=== PATIENT | male | born 1955 | race Caucasian/White ===

== ENCOUNTER 2023-05-24 09:55 | Emergency (ER) | payer OTHER, SELFPAY ==
[2023-05-24] VITALS (8 sets, daily range): BP systolic 121–158; BP diastolic 76–90; PULSE 67–68; BMI 27.6
--- NOTE | 2023-05-24 10:39 | EDRN ---
Derek LEE currently at the pts bedside
[2023-05-24 10:42] LABS: % Basophils 0.9 % (0-2); % Eosinophils 0.7 % (0-6); % Immature Granulocytes 0.5 % (0-0.5); % Lymphocytes 19.2 % (20.5-51.1); % Monocytes 7.8 % (1.7-9.3); % Neutrophils 70.9 % (42.2-75.2); Absolute Basophils 0.1 10^3/uL (0-0.2); Absolute Eosinophils 0.1 10^3/uL (0-0.7); Absolute Lymphocytes 1.7 10^3/uL (1.2-3.4); Absolute Monocytes 0.7 10^3/uL (0.1-0.6); Absolute Neutrophils 6.3 10^3/uL (1.4-6.5); Hematocrit 47.1 % (39.0-52.0); Hemoglobin 15.8 g/dL (13.0-18.0); Mean Corp Hgb Conc. 33.5 g/dL (33.0-37.0); Mean Corpuscular Hgb 29.6 pg (27.0-31.0); Mean Corpuscular Volume 88.4 fL (80.0-94.0); Mean Platelet Volume 11.2 fL (7.4-10.4); Nucleated Red Blood Cells % 0 % (-); Platelet Count 209 10^3/uL (130-400); Red Blood Cell Count 5.33 10^6/uL (4.70-6.10); Red Cell Dist. Width 12.7 % (11.5-14.5); White Blood Cell Count 8.9 10^3/uL (4.8-10.8)
[2023-05-24] MEDS: NSS 1000 IV (10:47)
[2023-05-24] MEDS: ANTIVERT 25 MG PO (10:47)
--- NOTE | 2023-05-24 10:49 | ED.GENMED ---
History of Present Illness
General
Chief Complaint: Dizziness
Source: patient
Time Seen by Provider: 05/24/23 10:34
Travel History
Have you had any contact with someone who has COVID-19?: No
Do you have any symptoms of coronavirus? Fever > 100 degrees, chills, cough, shortness of breath, sore throat, loss of taste or smell, muscle aches, or headache?: No
History of Present Illness
History of Present Illness:
67-year-old male with no significant past medical history presenting the emergency department for evaluation of vertigo that began upon awakening around 8 AM and has been persistent since although improved. Patient does note a history of vertigo
but states today seem to be lasting a little bit longer than his previous. He notes that he 'has had in her ear crystals' which were the cause of his previous vertigo attacks patient denies any other associated symptoms outside of nausea but is
otherwise denying any headaches, visual disturbances, focal weakness or numbness, chest pain, shortness of breath, palpitations, diaphoresis or any other symptoms. Patient denies any recent illnesses or otalgia. Did not attempt any medications for
relief prior to arrival.
Past History
Past History
ED Past Medical History: None
ED Past Surgical History: Other
Social History
Tobacco: Non-smoker
Alcohol: Occasional
Drug: None
Personal:
Living: with family
Review of Systems
Review of Systems
All Other Systems: ROS reviewed and negative except as documented in HPI and ROS
Phy Exam
Physical Exam
Physical Exam:
GENERAL: Alert , in no apparent distress
EYE: pupils equal and reactive, 3 mm bilateral, EOMI, no nystagmus
NECK: Supple
ENT: o/p clr, mmm.
CARDIAC: Regular rate and rhythm, no murmur.
LUNGS: Clear breath sounds bilaterally, no acute respiratory distress, no wheezes/rales/rhonchi
ABDOMEN: Soft, without focal tenderness, no r/g, no cvat
NEUROLOGICAL: Alert and oriented, no focal neuro deficits, moves all extremities, no dysmetria or dysarthria, sensation grossly intact to light touch throughout bilateral upper and lower extremities, moves all extremities without difficult
SKIN: Warm and dry, skin intact.
MUSCULOSKELETAL: No edema, well perfused.
PSYCH: Normal and appropriate interaction.
Scores
Heart Failure Risk
Heart Failure Risk Score: Not Applicable
Heart Score for Chest Pain Patients
STEMI patient?: Not applicable
Withdrawal Assessment of Alcohol
Withdrawal Assessment Completed?: Not applicable
Course
Orders/Labs/Results
Orders:
Orders
05/24/23 10:17
EKG [Electrocardiogram (*1)] Urgent
Reason for Study: Vertigo / Dizzy
05/24/23 10:18
EKG- Treatment ONCE
05/24/23 10:29
Complete Blood Count/With Diff Urgent
Comprehensive Metabolic Panel Urgent
05/24/23 10:40
0.9% Sodium Chloride 1000 ml [Nss] 1,000 ml IV BOLUS
05/24/23 10:45
CT Head W/o Iv Contrast Urgent
Comment:
Reason For Exam: vertigo
Meclizine [Antivert] 25 mg PO NOW STA
05/24/23 10:46
Meclizine [Antivert] 25 mg .ROUTE .ST-MED ONE
05/24/23 11:36
Physical Therapy Consult [Pt Eval And Treat] Urgent
Treatment: vestibular therapy
Activity Level: Ambulate
05/24/23 12:13
Ondansetron Injectable [Zofran] 4 mg IV NOW STA
Abnormal Lab Results
05/24/23
10:29
MPV 11.2 H fL
(7.4-10.4)
Absolute Monos (auto) 0.7 H 10^3/uL
(0.1-0.6)
Lymphocytes % 19.2 L %
(20.5-51.1)
Glucose 137 H mg/dl
(70-99)
05/24/23 10:29
05/24/23 10:29
Vital Signs
Initial and Last Documented VS:
Initial Vital Signs
Temp Pulse Resp BP Pulse Ox
97.5 F 59 18 158/90 100
05/24/23 09:58 05/24/23 09:58 05/24/23 09:58 05/24/23 09:58 05/24/23 09:58
Last Documented Vital Signs
Temp Pulse Resp BP Pulse Ox
97.6 F 58 15 136/84 99
05/24/23 11:06 05/24/23 11:06 05/24/23 11:06 05/24/23 11:06 05/24/23 11:06
MDM/Problems Addressed
Differential Diagnosis Includes:
BPPV, labyrinthitis, otitis media, less concern for CVA given positional nature of symptoms
MDM/Problems Addressed:
67-year-old male present emergency department for evaluation of vertigo since 8 AM. Patient has had multiple similar episodes in the past. Symptoms today lasted a little bit longer than previous. Will check labs, head CT and treat with Antivert.
Patient denying any nausea at present time. Anticipate discharge home as long as symptoms resolve.
*Pulse Oximetry
Patient hypoxic: no
*[employer] Interpretation
Rate: normal
Rhythm: sinus
*Critical Care Note
Total Time (30-74mins, 75-104mins- exclusive of procedures): Not Applicable
Patient Management
Escalation/DeEscalation of care consider admission/obs:
Following meclizine patient did note some improvement of symptoms but still states he feels a little bit off. I ordered a physical therapy consultation for vestibular treatment. PT came to evaluate the patient and states that patient did not have
any symptoms elicited during the exam however following completion of the exam patient was sat back up and became nauseous and had a few episodes of retching. I went to reevaluate the patient and he states that his symptoms seem to be resolved and
he otherwise feels well. Patient's labs and CT imaging are reassuring. He was able to ambulate without any assistance and with no ataxia identified. Patient has no risk factors for acute CVA outside of his mother potentially having a stroke in
her mid 80s. I do think it is reasonable for patient to continue outpatient management with Antivert and Zofran as needed. He was provided with a prescription for outpatient vestibular therapy. He is aware of return precautions to the emergency
department but otherwise stable for discharge home.
ED Attending Note
-
Portions of this chart may have been created with voice recognition software.� Occasional wrong word or��sound alike� substitutions may have occurred due to the inherent limitations of voice recognition software.
Discharge Plan
Departure
Patient Disposition: Home (Routine Discharge)
Date of Disposition: 05/24/23
Time of Disposition: 12:22
Patient with high blood pressure during this ER visit?: Yes
Discharge Problem:
Vertigo
Instructions: Vertigo (a type of dizziness)
Prescriptions:
New
meclizine 25 mg tablet
25 mg PO BID PRN (Reason: dizziness) Qty: 15 0RF
ondansetron 4 mg tablet,disintegrating
4 mg PO TIDPRN PRN (Reason: nausea/vomiting) Qty: 10 0RF
No Action
multivitamin 1 EACH tablet
1 tab PO DAILY
cholecalciferol (vitamin D3) [Vitamin D3] 400 UNITS tablet
1 tab PO DAILY
zinc 10 MG tablet
1 tab PO DAILY
Vitamin C:
1 tab PO DAILY
acetaminophen [Tylenol Extra Strength] 500 MG tablet
1,000 mg PO Q6HPRN PRN (Reason: mild pain) Qty: 1 0RF
ibuprofen 200 MG tablet
400 - 600 mg PO Q6HPRN PRN (Reason: moderate pain) Qty: 1 0RF
Referrals:
Tennille,Nii D., MD [Family Provider] -
Interventions
Interventions:
*Risk Screen - Suicide Last Done: 05/24/23 10:34
*General Assessment Last Done: 05/24/23 10:34
*Neglect/Abuse Screening Last Done: 05/24/23 10:34
ED- Fall Risk Assessment Last Done: 05/24/23 10:34
*ED COVID-19 Vaccine History Last Done: 05/24/23 09:58
*Nursing Disposition Last Done: 05/24/23 12:47
ED- Neurological Assessment Last Done: 05/24/23 10:34
ED- Cardiac Assessment Last Done: 05/24/23 10:34
ED Swallowing Screen Last Done: 05/24/23 10:34
Discharge Date and Time
Discharge Date/Time: 05/24/23 12:48
Print Language: PASHTO
[2023-05-24 10:53] LABS: ALT (SGPT) 21 U/L (0-50); AST (SGOT) 30 U/L (17-59); Albumin 4.6 g/dl (3.5-5.0); Alkaline Phosphatase 97 U/L (38-126); Blood Urea Nitrogen 13 mg/dl (9-20); Calcium 9.5 mg/dl (8.4-10.2); Carbon Dioxide 28 mmol/L (22-30); Chloride 104 mmol/L (98-107); Estimated Creatinine Clearance 76 ml/min; Glucose 137 mg/dl (70-99); Potassium 3.8 mmol/L (3.5-5.1); Sodium 138 mmol/L (135-145); Total Protein 7.6 g/dl (6.3-8.2); eGFR > 60.00
== END 2023-05-24 12:48 | disposition home or self-care (01) ==
LOC: EMR 09:55
PROVIDERS: EMERGENCY PHYSICIAN Emergency Medicine; FAMILY PHYSICIAN Family Medicine
DX: R42 Dizziness and giddiness (principal); R03.0 Elevated blood-pressure reading, without diagnosis of hypertension
CPT/HCPCS: 99285; 96360; 70450; 80053; 85025; 93005

== ENCOUNTER 2023-06-09 11:57 | Outpatient (RCR) | payer OTHER, SELFPAY | END 2023-06-09 23:59 | disposition home or self-care (01) | LOC: RPT 11:57 | PROVIDERS: ATTENDING PHYSICIAN Physician Assistant Medical; FAMILY PHYSICIAN Family Medicine | DX: R42 Dizziness and giddiness (principal); Z73.6 Limitation of activities due to disability | CPT/HCPCS: 97110; 97161 ==